=== PATIENT | male | born 1960 | race Caucasian/White ===

== ENCOUNTER 2023-05-18 16:45 | Outpatient (RCR) | payer BC, SELFPAY | END 2023-09-15 23:59 | disposition home or self-care (01) | PROVIDERS: PCP Surgery; Visit Provider Orthopaedic Surgery | DX: M25.571 Pain in right ankle and joints of right foot (principal); Z51.89 Encounter for other specified aftercare | CPT/HCPCS: 97110; 97112; 97140; 97161 ==